=== PATIENT | female | born 1985 | race Caucasian/White ===

== ENCOUNTER 2018-06-28 16:14 | Outpatient (REF) | payer BC, SELFPAY ==
[2018-06-28 22:06] LABS: Absolute Basophil Count 0.01 k/cumm (0.0-0.2); Absolute Eosinophil Count 0.05 k/cumm (0.0-0.7); Absolute Lymphocyte Count 2.07 k/cumm (1.2-3.4); Absolute Monocyte Count 0.35 k/cumm (0.11-0.7); Absolute Neutrophil Count 1.63 k/cumm (1.2-6.7); Basophils % 0.2; Eosinophils % 1.2; HCT 40.6 % (36.0-46.0); HGB 13.4 g/dL (12.0-15.5); Lymphocytes % 50.4; Mean Corpuscular Hemoglobin 30.5 pg (27.0-33.0); Mean Corpuscular Volume 92.3 fL (80-95); Mean Platelet Volume 10.8 fL (8.0-11.0); Monocytes % 8.5; Neutrophils % 39.7; Platelet Count 203 x1000/uL (130-400); RBC Distribution Width 13.8 % (11.7-14.6); White Blood Cell Count 4.11 k/cumm (4.4-10.8)
[2018-06-28 22:07] LABS: ALT 154 U/L (12-78); AST 85 U/L (15-37); Albumin 4.4 g/dL (3.4-5.0); Alkaline Phosphatase 150 U/L (46-116); Anion Gap 8.7 mmol/L (3-11); BUN 13 mg/dL (7-18); Bilirubin, Total 0.4 mg/dL (0.2-1.0); CO2 29.3 mmol/L (21.0-32.0); CREATININE 0.68 mg/dL (0.55-1.02); Calcium 9.3 mg/dL (8.5-10.1); Chloride 101 mmol/L (98-107); Glucose 90 mg/dL (70-100); Potassium 4.1 mmol/L (3.5-5.1); Sodium 139 mmol/L (136-145); Total Protein 7.7 g/dL (6.4-8.2)
== END 2018-06-28 16:34 ==
LOC: NCHCN 16:14
PROVIDERS: PCP Internal Medicine; Visit Provider Nurse Practitioner
DX: R10.84 Generalized abdominal pain (principal)
CPT/HCPCS: 80053; 85025

== ENCOUNTER 2018-07-11 18:03 | Outpatient (REF) | payer BC, SELFPAY ==
[2018-07-11 22:27] LABS: Iron 47 ug/dL (50-175); Total Iron Binding Capacity 352 ug/dL (250-450); Transferrin Sat 13 % (15-50)
[2018-07-11 22:39] LABS: ALT 34 U/L (12-78); AST 27 U/L (15-37); Albumin 4.3 g/dL (3.4-5.0); Alkaline Phosphatase 119 U/L (46-116); Bilirubin, Direct 0.09 mg/dL (0.00-0.20); Bilirubin, Total 0.3 mg/dL (0.2-1.0); Total Protein 7.4 g/dL (6.4-8.2)
[2018-07-11 23:18] LABS: Ferritin 56 ng/mL (8-388)
[2018-07-13 12:50] LABS: HBs Antibody, Qual Positive; HBs Antibody, Quant >1000.0 mIU/mL; Hepatitis B Core Antibody Negative (NEGAT); Hepatitis B surface Ag Negative (NEGAT); Hepatitis C Ab w Rflx HCV PCR Negative (NEGAT)
== END 2018-07-11 18:23 ==
LOC: NCHCN 18:03
PROVIDERS: PCP Internal Medicine; Visit Provider Nurse Practitioner
DX: R79.89 Other specified abnormal findings of blood chemistry (principal)
CPT/HCPCS: 80076; 86704; 86706; 86803; 87340; 82728; 83540; 83550

== ENCOUNTER 2019-02-12 15:49 | Outpatient (REF) | payer BC, SELFPAY ==
[2019-02-12 21:39] LABS: HCT 38.8 % (36.0-46.0); HGB 12.8 g/dL (12.0-15.5); Mean Corpuscular Hemoglobin 30.7 pg (27.0-33.0); Mean Platelet Volume 10.6 fL (8.0-11.0); Platelet Count 222 x1000/uL (130-400); RBC 4.17 m/cumm (4.00-5.20); RBC Distribution Width 12.8 % (11.7-14.6)
[2019-02-12 22:01] LABS: ALT 28 U/L (14-59); AST 24 U/L (15-37); Albumin 4.1 g/dL (3.4-5.0); Alkaline Phosphatase 97 U/L (46-116); Anion Gap 10.5 mmol/L (3-11); BUN 13 mg/dL (7-18); Bilirubin, Total 0.3 mg/dL (0.2-1.0); C-Reactive Protein 0.05 mg/dL (0.0-0.3); CO2 26.5 mmol/L (21.0-32.0); CREATININE 0.71 mg/dL (0.55-1.02); Calcium 8.7 mg/dL (8.5-10.1); Chloride 104 mmol/L (98-107); Glucose 84 mg/dL (70-100); Sodium 141 mmol/L (136-145); Total Protein 7.1 g/dL (6.4-8.2)
[2019-02-12 22:27] LABS: ESR 11 mm/hr (0-20)
[2019-02-18 08:37] LABS: IgA 260 mg/dL (85-499); Interpretation SEE COMMENTS; Tissue Transglutaminase IgA <1.2 U/mL (<4.0)
== END 2019-02-12 16:09 ==
LOC: NCHCN 15:49
PROVIDERS: PCP Internal Medicine; Visit Provider Internal Medicine
DX: R53.83 Other fatigue (principal); R10.9 Unspecified abdominal pain
CPT/HCPCS: 80053; 82784; 83516; 85027; 85652; 84443; 86140

== ENCOUNTER 2020-06-16 21:43 | Outpatient (REF) | payer BC, SELFPAY | END 2020-06-16 21:44 | disposition home or self-care (01) | LOC: NCHCN 21:43 | PROVIDERS: PCP Internal Medicine; Visit Provider Internal Medicine | DX: B82.9 Intestinal parasitism, unspecified (principal) | CPT/HCPCS: 87177 ==

== ENCOUNTER 2020-07-24 12:12 | Outpatient (REF) | payer BC, SELFPAY ==
[2020-07-24 13:16] LABS: HCT 34.9 % (36.0-46.0); HGB 11.2 g/dL (11.2-15.7); MCH 29.6 pg (27.0-33.0); MCHC 32.1 % (32.0-36.0); MCV 92.3 fL (80-95); MPV 9.8 fL (8.0-11.0); Platelet Count 250 10^3/uL (130-400); RBC 3.78 10^6/uL (3.93-5.22); RDW 12.5 % (11.7-14.6); RDW-SD 42.5 fL
[2020-07-24 14:01] LABS: ALT 52 U/L (14-59); AST 37 U/L (15-37); Albumin 4.3 g/dL (3.4-5.0); Alkaline Phosphatase 106 U/L (46-116); Anion Gap 9.2 mmol/L (3-11); BUN 9 mg/dL (7-18); Bilirubin, Total 0.3 mg/dL (0.2-1.0); CO2 26.8 mmol/L (21.0-32.0); CREATININE 0.8 mg/dL (0.55-1.02); Calcium 8.8 mg/dL (8.5-10.1); Chloride 104 mmol/L (98-107); Glucose 84 mg/dL (74-106); Lipase 149 U/L (73-393); Sodium 140 mmol/L (136-145); Total Protein 7.5 g/dL (6.4-8.2)
[2020-07-24 14:46] LABS: Iron 30 ug/dL (50-170)
[2020-07-24 21:39] LABS: CRP, High Sensitivity <0.34 mg/L (See Note)
[2020-07-27 11:29] LABS: Lyme Ab w Rflx to Lyme Confirm Negative (Negative)
== END 2020-07-24 12:13 | disposition home or self-care (01) ==
LOC: NCHCN 12:12
PROVIDERS: PCP Internal Medicine; Visit Provider Internal Medicine
DX: R10.9 Unspecified abdominal pain (principal); R53.83 Other fatigue; K58.1 Irritable bowel syndrome with constipation; R63.4 Abnormal weight loss
CPT/HCPCS: 80053; 83690; 85027; 86141; 83540; 84443; 86618

== ENCOUNTER 2021-02-15 20:32 | Outpatient (REF) | payer BC, SELFPAY ==
[2021-02-15 20:54] LABS: Anion Gap 8.3 mmol/L (3-11); BUN 4 mg/dL (7-18); CO2 28.7 mmol/L (21.0-32.0); CREATININE 0.8 mg/dL (0.55-1.02); Calcium 9.1 mg/dL (8.5-10.1); Chloride 105 mmol/L (98-107); Glucose 99 mg/dL (74-106); Sodium 142 mmol/L (136-145)
== END 2021-02-15 20:33 | disposition home or self-care (01) ==
LOC: LBN 20:32
PROVIDERS: PCP Internal Medicine; Visit Provider Physician Assistant Medical
DX: R35.0 Frequency of micturition (principal); R10.2 Pelvic and perineal pain
CPT/HCPCS: 80048; 87086

== ENCOUNTER 2021-02-16 00:42 | Outpatient (CLI) | payer BC, SELFPAY ==
--- NOTE | 2021-02-16 | DI.CT_ITS ---
Exam(s) CT ABDOMEN PELVIS W EXAM: CT ABDOMEN PELVIS W CLINICAL HISTORY: PELVIC PAIN R10.2. TECHNIQUE: Imaging Protocol: Axial computed tomography images with coronal and sagittal reformatted images were created and reviewed CONTRAST MATERIAL: Intravenous: Omnipaque 350 Contrast volume:100 ml Oral: yes / COMPARISON: US ABDOMEN ULTRASOUND from 04/30/2008 US ABDOMEN ULTRASOUND from 04/30/2008 FINDINGS: ABDOMEN: Lung Bases: Normal where visualized. Liver: Normal density. Small cyst subcapsular posterior right lobe.. Gallbladder and biliary tract: No radiodense calculus or dilation. Pancreas: Normal density, no abnormal calcifications or inflammatory process. Spleen: Normal. Kidneys: Normal size, contour and axis. No radiodense stones or obstructive uropathy. No masses seen. Adrenal glands: No masses seen. Abdominal Aorta: Abdominal portion non-dilated. PELVIS: Bladder: Over distension. No gross wall thickening. No calculi.No focal mass. Bowel:: Colon not opacified with oral contrast. Moderate quantity of stool. No obstruction or bowel wall thickening. Appendix normal. Peritoneal cavity: No ascites, collection or mesenteric inflammatory response. Bones: Bilateral L5 spondylolysis and mild L5-S1 spondylolisthesis. Schmorl's node superior endplate S1. Reproductive organs: Status post hysterectomy. Ovaries not visualized. Lymph nodes: Unremarkable. Impression: Distended urinary bladder without focal abnormality. No wall thickening. Otherwise unremarkable CT scan of the abdomen and pelvis. RADIATION DOSE DELIVERED: 599.55mGy.cm Total DLP DATA REPOSITORY: All CT scans at this facility are submitted to the National Radiology Data Registry (NRDR) Dose Index Registry (DIR) with the [employer] ([employer]). RADIATION OPTIMIZATION: All CT scans at this facility use at least one of these dose optimization te chniques: automated exposure control; mA and/or kV adjustment per patient size (includes targeted exa ms where dose is matched to clinical indication); or iterative reconstruction.
[2021-02-16] MEDS: Normal Saline - Diluent 50 ML VIAL IV (15:47)
[2021-02-16] MEDS: Normal Saline Flush 10 ML SYR IVP (15:50)
[2021-02-16] MEDS: Omnipaque 350 MG/ML 100 ML BTL IJ (15:52)
[2021-02-16] MEDS: Breeza Beverage 473 ML BTL 946 ML PO (15:58)
== END 2021-02-16 01:02 ==
PROVIDERS: PCP Internal Medicine; Visit Provider Physician Assistant Medical
DX: R10.2 Pelvic and perineal pain (principal); N32.89 Other specified disorders of bladder
CPT/HCPCS: 74177; J3490

== ENCOUNTER 2023-10-09 10:38 | Outpatient (REF) | payer SELFPAY ==
[2023-10-09 22:59] LABS: Estradiol 15 pg/mL (See Note)
== END 2023-10-09 10:39 | disposition home or self-care (01) ==
LOC: NCHCN 10:38
PROVIDERS: PCP Internal Medicine; Visit Provider Family Medicine
DX: E34.50 Androgen insensitivity syndrome, unspecified (principal)
CPT/HCPCS: 82670

== ENCOUNTER 2024-09-09 13:54 | Outpatient (REF) | payer BC, SELFPAY ==
[2024-09-09 21:54] LABS: HCT 35.7 % (36.0-46.0); MCH 31.6 pg (27.0-33.0); MCHC 33.6 % (32.0-36.0); MCV 94 fL (80-95); MPV 10.3 fL (8.0-11.0); Platelet Count 167 10^3/uL (130-400); RDW 12.8 % (11.7-14.6); RDW-SD 44.2 fL; WBC 4.11 10^3/uL (4.4-10.8)
[2024-09-09 22:10] LABS: Hemoglobin A1C 5.1 % (<5.7)
[2024-09-09 22:11] LABS: TSH (W/Ref FT4) 1.47 uIU/mL (0.36-3.74)
[2024-09-11 09:23] LABS: Lyme Ab w Rflx to Lyme Confirm Negative (Negative)
== END 2024-09-09 13:55 | disposition home or self-care (01) ==
LOC: NCHCN 13:54
PROVIDERS: PCP Family Medicine; Visit Provider Nurse Practitioner Family
DX: M25.59 Pain in other specified joint (principal); R53.83 Other fatigue; Z13.1 Encounter for screening for diabetes mellitus
CPT/HCPCS: 85027; 83036; 84443; 86618